=== PATIENT | female | born 1995 | race Caucasian/White ===

== ENCOUNTER 2018-06-06 13:55 | Emergency (ER) | payer OTHER ==
[2018-06-06 14:44] VITALS: BP 113/70; PULSE 69; RESP 16; TEMP 98.5; O2SAT 100
--- NOTE | 2018-06-06 15:01 | ED PDOC ---
HPI: CCC, URI, Sore Throat Time Seen by Provider: 06/06/18 14:50 Chief Complaint (Nursing): Cough, Cold, Congestion Chief Complaint (Provider): Cough, Chest Pain History Per: Patient History/Exam Limitations: no limitations Onset/Duration Of Symptoms: Days (x1 month cough, x1 week chest pain) Current Symptoms Are (Timing): Still Present Additional Complaint(s): 22 year old female presents to the ED for evaluation of a cough x1 month, and sharp right sided chest pain while coughing and while laying down x1 week. Patient reports taking Robitussin and Tylenol with little relief. Otherwise, denies bcp use, calf pain, and shortness of breath. Of note, she reports recent travel to [place] x1 month ago (4hr flight). PMD: Queenie Aguirre Past Medical History Reviewed: Historical Data, Nursing Documentation, Vital Signs Vital Signs: Last Vital Signs Temp 98.5 F 06/06/18 14:40 Pulse 69 06/06/18 14:40 Resp 16 06/06/18 14:40 BP 113/70 06/06/18 14:40 Pulse Ox 100 06/06/18 15:59 - Medical History PMH: No Chronic Diseases - Surgical History Surgical History: No Surg Hx - Family History Family History: States: Unknown Family Hx - Social History Current smoker - smoking cessation education provided: No Alcohol: None Drugs: Denies - Home Medications Home Medications: Ambulatory Orders Medication Instructions Recorded Promethazine HCl/Codeine 10 ml PO Q8H PRN #150 ml 06/06/18 [Prometh-Codein 6.25-10 mg/5 ml] - Allergies Allergies/Adverse Reactions: Allergies Allergy/AdvReac Type Severity Reaction Status Date / Time No Known Allergies Allergy Verified 06/06/18 14:40 Review of Systems ROS Statement: Except As Marked, All Systems Reviewed And Found Negative Cardiovascular: Positive for: Chest Pain (right sided while coughing and laying down) Respiratory: Positive for: Cough. Negative for: Shortness of Breath Musculoskeletal: Negative for: Other (calf pain) Physical Exam - Reviewed Nursing Documentation Reviewed: Yes Vital Signs Reviewed: Yes - Physical Exam Appears: Positive for: No Acute Distress Head Exam: Positive for: ATRAUMATIC, NORMOCEPHALIC Skin: Positive for: Normal Color, Warm, Dry Eye Exam: Positive for: Normal appearance ENT: Positive for: Normal ENT Inspection Neck: Positive for: Normal, Painless ROM, Supple Cardiovascular/Chest: Positive for: Regular Rate, Rhythm Respiratory: Positive for: Normal Breath Sounds. Negative for: Accessory Muscle Use, Wheezing, Respiratory Distress Extremity: Positive for: Normal ROM. Negative for: Calf Tenderness Neurologic/Psych: Positive for: Alert, Oriented (x3) - ECG O2 Sat by Pulse Oximetry: 100 (RA) Pulse Ox Interpretation: Normal Medical Decision Making Medical Decision Making: Time: 1504 Initial Impression: cough Initial Plan: --CXR --Urine CXR without acute cardiopulmonary disease. Scribe Attestation: Documented by Tyra Butler, acting as a scribe for Andreia Colmenares PA-C. Provider Scribe Attestation: All medical record entries made by the Scribe were at my direction and personally dictated by me. I have reviewed the chart and agree that the record accurately reflects my personal performance of the history, physical exam, medical decision making, and the department course for this patient. I have also personally directed, reviewed, and agree with the discharge instructions and disposition. Disposition - Clinical Impression Clinical Impression: Cough - Patient ED Disposition Is Patient to be Admitted: No Counseled Patient/Family Regarding: Diagnosis, Need For Followup - Disposition Referrals: Ronal Borges MD [Staff Provider] - Disposition: Routine/Home Disposition Time: 16:37 Condition: STABLE Prescriptions: Promethazine HCl/Codeine [Prometh-Codein 6.25-10 mg/5 ml] 10 ml PO Q8H PRN #150 ml PRN Reason: Cough Instructions: Cough in Adults Forms: [employer] (Turkish)
--- NOTE | 2018-06-06 16:29 | RAD ---
Date of service: 06/06/2018 HISTORY: cough x 1 month COMPARISON: No prior. TECHNIQUE: Chest PA and lateral FINDINGS: LUNGS: No active pulmonary disease. PLEURA: No significant pleural effusion identified. No pneumothorax apparent. CARDIOVASCULAR: Normal. OSSEOUS STRUCTURES: No significant abnormalities. VISUALIZED UPPER ABDOMEN: Normal. OTHER FINDINGS: None. IMPRESSION: No active disease.
== END 2018-06-06 16:41 | disposition home or self-care (01) ==
LOC: H.ER 13:55
DX: R05 Cough (principal)